=== PATIENT | male | born 1990 | race Caucasian/White ===

== ENCOUNTER 2016-09-09 07:07 | Emergency (ER) | payer OTHER ==
[2016-09-09 07:10] VITALS: BP 143/86; PULSE 119; RESP 15; TEMP 98.4; O2SAT 97
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
[2016-09-09] MEDS ORDERED: TETANUS/DIPHTHERIA TOXOID ADULT 0.5 ML VIAL IM ONE (08:15)
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
[2016-09-09 09:46] VITALS: BP 124/83; TEMP 97.8
== END 2016-09-09 09:46 | disposition home or self-care (01) ==
LOC: NEPC 07:07
DX: S09.90XA Unspecified injury of head, initial encounter (principal); S40.012A Contusion of left shoulder, initial encounter; S60.552A Superficial foreign body of left hand, initial encounter; S60.551A Superficial foreign body of right hand, initial encounter; F90.9 Attention-deficit hyperactivity disorder, unspecified type; F17.210 Nicotine dependence, cigarettes, uncomplicated; V48.5XXA Car driver injured in noncollision transport accident in traffic accident, initial encounter; Z23 Encounter for immunization
CPT/HCPCS: 70450; 72125; 73030; 90714; L0150